=== PATIENT | female | born 1965 ===

== ENCOUNTER → 2020-09-27 15:02 | Outpatient (CLI) | payer OTHER ==
[2020-09-27 15:45] LABS: BASOPHILS 0.8 % (0-2); EOSINOPHILS 10.6 % (0-7); HEMATOCRIT 27.2 % (36.0-48.0); HEMOGLOBIN 7.8 g/dL (12-16); IMMATURE GRANULOCYTES 0.5 % (0-5); LYMPHOCYTE ABS# 1.46 10x3/uL (1.18-3.74); LYMPHOCYTES 24.2 % (15-50); MCHC 28.7 g/dL (31.0-37.0); MCV 80.2 fL (80.0-100.0); MEAN PLATELET VOLUME 9.9 fL (7.4-10.4); MONOCYTES 10.4 % (2-11); NEUTROPHIL ABS# 3.22 10x3/uL (1.56-6.13); NEUTROPHILS 53.5 % (40-80); PLATELET COUNT 483 10x3/uL (130-400); RBC 3.39 10x6/uL (4.00-5.40); RDW 20.2 % (11.5-14.5)
[2020-09-27 16:02] LABS: ANION GAP 19.3 mmol/L (8-16); C-REACTIVE PROTEIN 1.6 mg/dL (0.0-0.9); CALCIUM 8.7 mg/dL (8.5-10.1); CARBON DIOXIDE 23.6 mmol/L (21.0-32.0); POTASSIUM - SERUM 3.9 mmol/L (3.5-5.1); VANCOMYCIN - TROUGH 16.2 ug/mL (10.0-20.0)
[2020-09-27 17:28] LABS: ERYTHROCYTE SEDIMENTATION RATE 11 mm/hr (0-30)
== END | disposition home or self-care (01) ==
LOC: D.LABREF 15:02
PROVIDERS: ATTEND Internal Medicine Infectious Disease
DX: Z45.2 Encounter for adjustment and management of vascular access device (principal); T81.49XA Infection following a procedure, other surgical site, initial encounter

== ENCOUNTER → 2020-10-04 16:38 | Outpatient (CLI) | payer OTHER ==
[2020-10-04 16:46] LABS: BASOPHILS 1.2 % (0-2); EOSINOPHILS 10.6 % (0-7); HEMATOCRIT 26.1 % (36.0-48.0); HEMOGLOBIN 7.6 g/dL (12-16); IMMATURE GRANULOCYTES 0.4 % (0-5); LYMPHOCYTE ABS# 1.23 10x3/uL (1.18-3.74); LYMPHOCYTES 21.7 % (15-50); MCH 22.8 pg (26.0-34.0); MCHC 29.1 g/dL (31.0-37.0); MCV 78.4 fL (80.0-100.0); MEAN PLATELET VOLUME 10.1 fL (7.4-10.4); MONOCYTES 9.9 % (2-11); NEUTROPHIL ABS# 3.18 10x3/uL (1.56-6.13); NEUTROPHILS 56.2 % (40-80); RBC 3.33 10x6/uL (4.00-5.40); WBC 5.7 10x3/uL (4.8-10.8)
[2020-10-04 16:48] LABS: PLATELET COUNT 379 10x3/uL (130-400)
[2020-10-04 16:59] LABS: ANION GAP 17.2 mmol/L (8-16); CARBON DIOXIDE 25.1 mmol/L (21.0-32.0); POTASSIUM - SERUM 4.3 mmol/L (3.5-5.1); VANCOMYCIN - TROUGH 14.1 ug/mL (10.0-20.0)
[2020-10-04 17:52] LABS: ERYTHROCYTE SEDIMENTATION RATE 14 mm/hr (0-30)
== END | disposition home or self-care (01) ==
LOC: D.LABREF 16:38
PROVIDERS: ATTEND Internal Medicine Infectious Disease
DX: T81.49XA Infection following a procedure, other surgical site, initial encounter (principal); Z45.2 Encounter for adjustment and management of vascular access device

== ENCOUNTER → 2020-10-11 14:29 | Outpatient (CLI) | payer OTHER ==
[2020-10-11 14:55] LABS: BASOPHILS 0.6 % (0-2); HEMATOCRIT 27.3 % (36.0-48.0); HEMOGLOBIN 7.8 g/dL (12-16); IMMATURE GRANULOCYTES 0.3 % (0-5); LYMPHOCYTE ABS# 1.16 10x3/uL (1.18-3.74); LYMPHOCYTES 16.5 % (15-50); MCH 21.8 pg (26.0-34.0); MCHC 28.6 g/dL (31.0-37.0); MCV 76.5 fL (80.0-100.0); MEAN PLATELET VOLUME 10.3 fL (7.4-10.4); MONOCYTES 8.3 % (2-11); NEUTROPHIL ABS# 4.67 10x3/uL (1.56-6.13); NEUTROPHILS 66.3 % (40-80); RBC 3.57 10x6/uL (4.00-5.40); RDW 18.4 % (11.5-14.5)
[2020-10-11 14:56] LABS: PLATELET COUNT 298 10x3/uL (130-400)
[2020-10-11 15:10] LABS: ANION GAP 15.3 mmol/L (8-16); CALCIUM 8.7 mg/dL (8.5-10.1); CARBON DIOXIDE 24.8 mmol/L (21.0-32.0); CREATININE - SERUM 0.9 mg/dL (0.6-1.3); POTASSIUM - SERUM 4.1 mmol/L (3.5-5.1)
[2020-10-11 16:02] LABS: ERYTHROCYTE SEDIMENTATION RATE 13 mm/hr (0-30)
== END | disposition home or self-care (01) ==
LOC: D.LABREF 14:29
PROVIDERS: ATTEND Internal Medicine Infectious Disease
DX: Z45.2 Encounter for adjustment and management of vascular access device (principal); T81.49XA Infection following a procedure, other surgical site, initial encounter

== ENCOUNTER → 2020-10-18 21:18 | Outpatient (CLI) | payer OTHER ==
[2020-10-18 22:13] LABS: BASOPHILS 0.8 % (0-2); EOSINOPHILS 9.4 % (0-7); HEMATOCRIT 27.6 % (36.0-48.0); HEMOGLOBIN 7.9 g/dL (12-16); IMMATURE GRANULOCYTES 0.6 % (0-5); LYMPHOCYTE ABS# 1.34 10x3/uL (1.18-3.74); LYMPHOCYTES 21.3 % (15-50); MCH 21.8 pg (26.0-34.0); MCHC 28.6 g/dL (31.0-37.0); MEAN PLATELET VOLUME 10.6 fL (7.4-10.4); MONOCYTES 7.8 % (2-11); NEUTROPHIL ABS# 3.79 10x3/uL (1.56-6.13); NEUTROPHILS 60.1 % (40-80); RBC 3.63 10x6/uL (4.00-5.40); RDW 18.8 % (11.5-14.5); WBC 6.3 10x3/uL (4.8-10.8)
[2020-10-18 22:24] LABS: PLATELET COUNT 361 10x3/uL (130-400)
[2020-10-18 22:28] LABS: ANION GAP 16.1 mmol/L (8-16); CALCIUM 8.2 mg/dL (8.5-10.1); CARBON DIOXIDE 23.1 mmol/L (21.0-32.0); CREATININE - SERUM 1.1 mg/dL (0.6-1.3); POTASSIUM - SERUM 4.2 mmol/L (3.5-5.1)
[2020-10-18 23:29] LABS: ERYTHROCYTE SEDIMENTATION RATE 8 mm/hr (0-30)
== END | disposition home or self-care (01) ==
LOC: D.LABREF 21:18
PROVIDERS: ATTEND Internal Medicine Infectious Disease
DX: T81.49XA Infection following a procedure, other surgical site, initial encounter (principal); Z45.2 Encounter for adjustment and management of vascular access device

== ENCOUNTER → 2020-10-25 17:53 | Outpatient (CLI) | payer OTHER ==
[2020-10-25 18:38] LABS: BASOPHILS 0.9 % (0-2); EOSINOPHILS 8.8 % (0-7); HEMATOCRIT 28.2 % (36.0-48.0); IMMATURE GRANULOCYTES 0.7 % (0-5); LYMPHOCYTE ABS# 1.24 10x3/uL (1.18-3.74); LYMPHOCYTES 21.3 % (15-50); MCH 21.1 pg (26.0-34.0); MCHC 28.4 g/dL (31.0-37.0); MCV 74.2 fL (80.0-100.0); MEAN PLATELET VOLUME 10.8 fL (7.4-10.4); MONOCYTES 9.1 % (2-11); NEUTROPHIL ABS# 3.44 10x3/uL (1.56-6.13); NEUTROPHILS 59.2 % (40-80); PLATELET COUNT 371 10x3/uL (130-400); RDW 18.5 % (11.5-14.5); WBC 5.8 10x3/uL (4.8-10.8)
[2020-10-25 18:45] LABS: ANION GAP 16.7 mmol/L (8-16); CALCIUM 9.1 mg/dL (8.5-10.1); CARBON DIOXIDE 26.4 mmol/L (21.0-32.0); POTASSIUM - SERUM 4.1 mmol/L (3.5-5.1); VANCOMYCIN - TROUGH 16.5 ug/mL (10.0-20.0)
[2020-10-25 20:22] LABS: ERYTHROCYTE SEDIMENTATION RATE 10 mm/hr (0-30)
== END | disposition home or self-care (01) ==
LOC: D.LABREF 17:53
PROVIDERS: ATTEND Internal Medicine Infectious Disease
DX: T81.49XA Infection following a procedure, other surgical site, initial encounter (principal)